=== PATIENT | female | born 1985 | race Caucasian/White ===

== ENCOUNTER 2017-01-14 11:43 | Emergency (ER) | payer OTHER ==
[~2017-01-14] VITALS: Ht 165.1 cm; Wt 62.6 kg
[2017-01-14 11:58] VITALS: BP 105/73
--- NOTE | 2017-01-14 13:12 | NUR ---
Patient ambulated to bed 5.
--- NOTE | 2017-01-14 13:14 | NUR ---
32/F BIB SELF C/O AWOKE WITH OD RED, MODERATE PRURITUS, AND DRAINAGE DENIES PAIN NO VISUAL CHANGES. DENIES N/V/D; SKIN IS PINK/WARM/DRY; AAOX4 WITH EVEN AND STEADY GAIT; LUNGS CLEAR BL; HR EVEN AND REGULAR; PT DENIES ANY FEVER, CP, SOB, OR COUGH AT THIS TIME; PATIENT STATES PAIN OF 0/10 AT THIS TIME; VSS; PATIENT POSITIONED FOR COMFORT; HOB ELEVATED; BEDRAILS UP X2; BED DOWN. ER MD MADE AWARE OF PT STATUS.
[2017-01-14 13:57] VITALS: BP 118/70
--- NOTE | 2017-01-14 13:57 | NUR ---
Patient discharged with v/s stable. Written and verbal after care instructions given and explained. Patient verbalized understanding. Ambulatory with steady gait. All questions addressed prior to discharge. Advised to follow up with PMD.
== END 2017-01-14 13:57 | disposition home or self-care (01) ==
LOC: MED 11:43
DX: B30.9 Viral conjunctivitis, unspecified (principal)
CPT/HCPCS: 99283